=== PATIENT | female | born 2000 | race African-American/Black ===

== ENCOUNTER 2022-05-19 09:25 | Inpatient (IN) | payer OTHER ==
[~2022-05-19] VITALS: Ht 157.5 cm; Wt 67.6 kg
[2022-05-19 10:58] LABS: ALBUMIN 3.6 g/dL (3.5-5.0); ANION GAP 13.8 mmol/L (8-16); CREATININE, SERUM 0.49 mg/dL (0.57-1.11); POTASSIUM 3.8 mmol/L (3.5-5.1)
[2022-05-19] MEDS ORDERED: SODIUM CHLORIDE FLUSH 10 ML SYR INJ PRN (11:00)
[2022-05-19 11:08] LABS: BASOPHILS % 0.3 % (0.0-1.0); EOSINOPHILS # (AUTO) 0.1 (0.0-0.4); EOSINOPHILS % 1.5 % (0.0-6.0); HEMOGLOBIN 12.1 g/dL (12.0-16.0); LYMPHOCYTES % 29.6 % (18.0-39.1); MEAN CORPUSCULAR HEMOGLOBIN 29.4 pg (28-32); MEAN CORPUSCULAR HGB CONC 31.8 g/dL (31-35); MEAN CORPUSCULAR VOLUME 92.5 fL (81-99); MONOCYTES # (AUTO) 0.6 (0.2-0.8); MONOCYTES % 9.7 % (4.4-11.3); NEUTROPHILS # (AUTO) 3.9 (2.1-6.9); NEUTROPHILS % 58.6 % (38.7-80.0); PLATELET COUNT 307 x10e3/uL (140-360); RED BLOOD COUNT 4.11 x10e6/uL (3.6-5.1); RED CELL DISTRIBUTION WIDTH 13.8 % (11.7-14.4)
[2022-05-19 12:51] VITALS: BP 136/84
[2022-05-19 13:51] VITALS: BP 136/84
[2022-05-19] MEDS ORDERED: SODIUM CHLORIDE 0.9% 1000ML 1,000 ML ONE (13:52)
[2022-05-19] MEDS ORDERED: ACETAMINOPHEN 325 MG TAB PO PRN (14:00)
[2022-05-19] MEDS ORDERED: ONDANSETRON HCL INJ 2MG/ML 2ML 2 MG/ML VIAL IV PRN (14:00)
[2022-05-19] MEDS ORDERED: TRAMADOL HCL 50 MG TAB PO PRN (14:30)
[2022-05-19] MEDS: SODIUM CHLORIDE 0.9% 1000ML 1,000 ML IV SCH ×2 (15:52→21:07)
[2022-05-19 16:30] VITALS: BP 128/69
[2022-05-19 20:00] VITALS: BP 134/78
[2022-05-19 21:25] LABS: CLARITY,URINE CLEAR (CLEAR); COLOR,URINE YELLOW (YELLOW); KETONES,URINE NEGATIVE (NEGATIVE); LEUKOCYTE ESTERASE ,URINE NEGATIVE (NEGATIVE); NITRITE,URINE NEGATIVE (NEGATIVE); PROTEIN,URINE DIPSTICK NEGATIVE (NEGATIVE); URINE UROBILINOGEN 0.2 mg/dL (0.2 - 1)
[2022-05-19 21:29] LABS: BACTERIA,URINE FEW /HPF; EPITHELIAL CELLS,URINE MANY /LPF
[2022-05-19 23:02] VITALS: BP 134/78
[2022-05-20] VITALS (7 sets, daily range): BP systolic 99–144; BP diastolic 49–99
[2022-05-20] MEDS: SODIUM CHLORIDE 0.9% 1000ML 1,000 ML IV SCH ×3 (05:11→16:45)
[2022-05-20 06:11] LABS: ALBUMIN 3.1 g/dL (3.5-5.0); ANION GAP 11.8 mmol/L (8-16); CALCIUM 8.3 mg/dL (8.4-10.2); CREATININE, SERUM 0.45 mg/dL (0.57-1.11); POTASSIUM 3.8 mmol/L (3.5-5.1)
[2022-05-20 06:35] LABS: CHOL/HDL RATIO 4.2 (3.0-3.6)
[2022-05-20] MEDS ORDERED: MAGNESIUM SULFATE 2GM/50ML 50 ML IV ONE (15:30)
[2022-05-21] VITALS (7 sets, daily range): BP systolic 109–148; BP diastolic 63–93
[2022-05-21] MEDS: SODIUM CHLORIDE 0.9% 1000ML 1,000 ML IV SCH ×4 (00:07→20:51)
[2022-05-21 05:50] LABS: INR 0.98; PROTHROMBIN TIME 13.5 seconds (11.9-14.5)
[2022-05-21 06:03] LABS: ALBUMIN 3.1 g/dL (3.5-5.0); BILIRUBIN,DIRECT 0.1 mg/dL (0.0-0.5)
[2022-05-21] MEDS ORDERED: MIDAZOLAM HCL 2 MG/2 ML VIAL ONE (11:13)
[2022-05-21] MEDS ORDERED: FENTANYL CITRATE/PF 100MCG/2 ML INJ ONE (11:13)
[2022-05-21] MEDS ORDERED: EYE LUBRICANT OPTH OINT 3.5GM TUBE OP ONE (11:50)
[2022-05-21] MEDS ORDERED: SEVOFLURANE INHAL SOLN 250 ML PEN BTL ONE (11:50)
[2022-05-21] MEDS ORDERED: LIDOCAINE HCL 2% LOCAL INJ 5 ML SDV VIAL INJ ONE (11:50)
[2022-05-21] MEDS ORDERED: EPHEDRINE SULFATE INJ 50 MG/ML VIAL ONE (11:50)
[2022-05-21] MEDS ORDERED: PROPOFOL IV EMULSION 10 MG/ML 20 ML VIAL ONE (11:50)
[2022-05-21] MEDS ORDERED: POVIDONE IODINE 0.05% 0.05 % ML PO ONE (11:50)
[2022-05-21] MEDS ORDERED: DEXAMETHASONE SOD PHOS INJ 4 MG/ML SDV ONE (11:50)
[2022-05-21] MEDS ORDERED: ONDANSETRON HCL INJ 2MG/ML 2ML 2 MG/ML VIAL ONE (11:50)
[2022-05-22] VITALS (7 sets, daily range): BP systolic 130–141; BP diastolic 83–91
[2022-05-22] MEDS: SODIUM CHLORIDE 0.9% 1000ML 1,000 ML IV SCH ×3 (02:34→14:00)
[2022-05-22 05:36] LABS: BILIRUBIN,DIRECT 0.2 mg/dL (0.0-0.5)
[2022-05-23] MEDS: SODIUM CHLORIDE 0.9% 1000ML 1,000 ML IV SCH ×3 (01:01→13:25)
[2022-05-23 05:31] VITALS: BP 133/68
[2022-05-23 05:40] LABS: ALBUMIN 3.2 g/dL (3.5-5.0); BILIRUBIN,DIRECT 0.1 mg/dL (0.0-0.5)
[2022-05-23 07:15] VITALS: BP 132/77
[2022-05-23] MEDS ORDERED: ONDANSETRON HCL 4 MG ORAL DISINTEGRATING TAB PO PRN (10:45)
[2022-05-23] MEDS ORDERED: FAMOTIDINE 20 MG/2 ML VIAL IV ONE (12:43)
[2022-05-23] MEDS ORDERED: BUPIVACAINE 0.5%/EPI 30 ML SDV INJ ONE (12:59)
[2022-05-23] MEDS ORDERED: ACETAMINOPHEN/CODEINE 300MG - 30MG TAB PO PRN (13:15)
[2022-05-23 14:00] VITALS: BP 150/78
== END 2022-05-23 17:40 | disposition home or self-care (01) | DRG 558 ==
LOC: FSED 09:30 → ERHOLD 11:00 → MED/SURG 12:22 → OBSVTOIN 05-21 17:06
PROVIDERS: ADMIT Internal Medicine; ATTEND Internal Medicine
PROC: 0KBP3ZX Excision of Left Hip Muscle, Percutaneous Approach, Diagnostic (ICD-10-PCS; principal; 2022-05-21)
DX: M62.82 Rhabdomyolysis (principal); Z20.822 Contact with and (suspected) exposure to COVID-19
CPT/HCPCS: 36415; 80053; 80061; 80076; 80307; 81001; 81003; 81025; 82550; 82553; 83735; 84443; 85025; 85610; 86140; 88304; 96361; 99284; G0378; J1100; J2001; J2250; J2405; J3475; J7030

== ENCOUNTER 2022-05-29 16:51 | Outpatient (RCR) | payer OTHER | END 2022-06-09 | LOC: PT 16:51 | PROVIDERS: ATTEND Internal Medicine | DX: M62.81 Muscle weakness (generalized) (principal) ==

== ENCOUNTER 2022-06-12 09:22 | Outpatient (RCR) | payer OTHER | END 2022-07-09 | LOC: PT 09:22 | PROVIDERS: ATTEND Internal Medicine | DX: M62.81 Muscle weakness (generalized) (principal); R26.89 Other abnormalities of gait and mobility; Z91.81 History of falling ==